=== PATIENT | female | born 1985 | race Caucasian/White ===

== ENCOUNTER → 2020-11-20 | Outpatient (CLI) | payer OTHER ==
--- NOTE | 2020-11-20 15:22 | KCIC ---
Bilateral digital screening mammograms with 3-D tomosynthesis: Reason for examination: Routine baseline screening. Bilateral mammograms in CC and oblique projections were obtained with 2-D imaging and 3-D tomosynthes is imaging on a Siemens Inspiration unit and reviewed on the workstation. Interpretation was made wit h the benefit of CAD. The skin and nipples show no abnormalities. No abnormal axillary lymph nodes are seen. The breast par enchyma is extremely dense. (Breast density: Category D.) There are clustered calcifications at appro ximately the 6:00 C position posteriorly in the right breast and posterior central and inferior at th e 5:30 C positions of the left breast. Recommend further evaluation with coned magnification views. T here are no other dominant masses, suspicious calcifications or architectural distortion. Benign calc ifications are present. Impression: Clustered calcifications seen bilaterally at approximately the 2:00 C position posterior centrally in the right breast and at the 5:30 C position posterior centrally and posterior inferiorly in the left breast. Recommend further evaluation with bilateral coned magnification views in CC and true lateral projections. Your patient's mammogram demonstrates that she has dense breast tissue (breast density category C or D), which could hide abnormalities, and if she has other risk factors for breast cancer that have bee n identified, she might benefit from supplemental screening tests that may be suggested by you as her ordering physician. Dense breast tissue, in and of itself, is a relatively common condition. Therefo re, this information is not provided to cause undue concern, but rather to raise your awareness and t o promote discussion with your patient regarding the presence of other risk factors, in addition to d ense breast tissue. Your patient's mammography results will be sent to her. BI-RAD Category 0: Incomplete. Needs additional imaging evaluation. "Our facility is accredited by the [employer]." This patient's information has been entered into a reminder system for the patient to be notified wit h the results of her examination and a target date for the next mammogram. Electronically signed by: Domi Blanchard MD (11/20/2020 3:19 PM) [id number]
== END ==
LOC: KCIC MAMMO 13:50
PROVIDERS: ATTEND Obstetrics & Gynecology
DX: Z12.31 Encounter for screening mammogram for malignant neoplasm of breast (principal); R92.1 Mammographic calcification found on diagnostic imaging of breast
CPT/HCPCS: 77067

== ENCOUNTER → 2020-12-25 | Outpatient (CLI) | payer OTHER ==
--- NOTE | 2020-12-25 15:27 | KCIC ---
Bilateral diagnostic digital mammograms: Reason for examination: Calcifications on baseline screening mammograms. Comparison is made to mammographic exam dated 11/20/2020. Coned compression magnification views were obtained in CC and lateral views bilaterally. In the right breast at the 6:30 position approximately 3.5 cm from the nipple, there is a cluster of calcifications which have an indeterminate appearance. Further evaluation with stereotactic biopsy is recommended. In the left breast at the 5:00 C position 4.5 cm from the nipple and at the 12:00 position 3.5 cm fro m the nipple, there are clusters of pleomorphic calcifications. Further evaluation with stereotactic biopsy is recommended. IMPRESSION: Clustered calcifications in the right breast at the 6:30 position 3.5 cm from the nipple, in the left breast at the 5:00 C position 4.5 cm from the nipple and in the left breast at 12:00 position 3.5 cm from the nipple. Recommend stereotactic biopsies bilaterally. Due to the posterior locations of the calcifications at the 5:00 position in the left breast and the calcifications in the 6:30 position of the right breast, upright stereotactic biopsy should be considered. BI-RADS Category 4: Suspicious. These findings have been discussed with the patient and Skylar, the physician teachers' assistant for [employer], was notified about these findings via the available voicemail at 3:20 PM on 12/25/2020.. "Our facility is accredited by the [employer]amm[employer]." Electronically signed by: Domi Blanchard MD (12/25/2020 3:25 PM) [email or web address]
== END ==
LOC: KCIC MAMMO 12:46
PROVIDERS: ATTEND Obstetrics & Gynecology
DX: R92.1 Mammographic calcification found on diagnostic imaging of breast (principal)
CPT/HCPCS: 77066